=== PATIENT | male | born 1965 | race Caucasian/White ===

== ENCOUNTER → 2020-07-26 | Outpatient (REF) ==
--- NOTE | 2020-07-26 14:31 | REP ---
INDICATION: DDD. COMPARISON: None. TECHNIQUE: Four views of the right hand are obtained. FINDINGS: Four views of the right hand demonstrate overall normal mineralization. There are osteoarthritic spurs formed at the IP joint of the thumb, the DIP joint of the index, the DIP and PIP joints of the long, and the DIP joint of the small finger. Osteoarthritic spurring is also noted at the 1st, 2nd, 3rd, and 4th MCP joints. There is osteoarthritis at the 1st carpometacarpal articulation with mild spurring. Joint spaces are preserved. No acute erosive changes seen.. No fracture or subluxation is seen. There are 2 tiny flecks of metallic density in the soft tissues dorsally and laterally to the PIP joint of the 5th digit and there is a small metallic density in the soft tissues of the distal phalanx of the thumb. IMPRESSION: Osteoarthritic changes as noted above.. Metallic densities in the soft tissues as above. <Electronically signed by Ludwig Sharma > 07/26/20 [id number]
== END ==
LOC: M RAD 08:28
PROVIDERS: ATTEND Internal Medicine
DX: M54.5 Low back pain (principal)